=== PATIENT | female | born 1990 | race Two or more races ===

== ENCOUNTER 2017-08-16 09:51 | Emergency (ER) | payer MEDICAID ==
[~2017-08-16] VITALS: Ht 154.9 cm; Wt 81.6 kg
[2017-08-16 13:01] VITALS: BP 118/70
== END 2017-08-16 13:05 | disposition home or self-care (01) ==
LOC: ER 09:51
DX: J20.9 Acute bronchitis, unspecified (principal)

== ENCOUNTER 2017-12-19 18:44 | Emergency (ER) | payer MEDICAID ==
[~2017-12-19] VITALS: Ht 154.9 cm; Wt 81.6 kg
[2017-12-19 21:52] VITALS: BP 141/59
== END 2017-12-19 23:12 | disposition home or self-care (01) ==
LOC: ER 18:44
DX: J06.9 Acute upper respiratory infection, unspecified (principal)

== ENCOUNTER 2024-04-15 21:00 | Emergency (ER) | payer BC, MEDICAID ==
[~2024-04-15] VITALS: Ht 157.5 cm; Wt 93.7 kg
[2024-04-16] MEDS: BENZOCAINE (DENTAL) 20 % SPRAY 60ML MT ONE
[2024-04-16] MEDS ORDERED: AMOX875T4 PO (00:02)
[2024-04-16] MEDS ORDERED: ACET500T58 PO (00:02)
[2024-04-16 00:58] VITALS: BP 119/71; PULSE 75; RESP 16; TEMP 98; O2SAT 99
== END 2024-04-16 01:22 | disposition home or self-care (01) ==
LOC: ER 21:00
DX: K04.7 Periapical abscess without sinus (principal); Z79.1 Long term (current) use of non-steroidal anti-inflammatories (NSAID)